=== PATIENT | male | born 1995 | race Caucasian/White ===

== ENCOUNTER 2019-05-06 22:12 | Emergency (ER) | payer MEDICAID ==
[~2019-05-06] VITALS: Ht 180.3 cm; Wt 120.2 kg
[2019-05-06 22:54] VITALS: BP_SYST 147
--- NOTE | 2019-05-06 22:59 | NUR ---
Patient triaged and placed in waiting room. VSS and patient appears in no acute distress at this time. Accompanied by girlfriend, awaiting available bed, and MD notified of need for MSE.
--- NOTE | 2019-05-07 00:45 | NUR ---
Patient to ER bed 04 to gown for evaluation. Side rails up.
--- NOTE | 2019-05-07 00:50 | NUR ---
Patient to ER via triage for evaluation of rectal pain, patient reports HX of hemorrhoids x 1 year. Patient is awake, alert and oriented in no acute distress, vital signs stable, respirations even and unlabored, skin warm and dry to touch. Patient able to ambulate without difficulty with slow, steady gait to bed 4. Awaiting evaluation by ER MD, will continue to observe and assess.
--- NOTE | 2019-05-07 01:11 | NUR ---
ER Dr. Osorio at bedside examining patient.
[2019-05-07] MEDS ORDERED: ACETAMINOPHEN 500 MG TABLET PO ONE (01:15)
[2019-05-07] MEDS ORDERED: IBUPROFEN 800 MG TABLET PO ONE (01:15)
--- NOTE | 2019-05-07 01:50 | NUR ---
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
[2019-05-07 02:40] VITALS: BP_SYST 130
--- NOTE | 2019-05-07 02:40 | NUR ---
Patient given written and verbal discharge instructions and verbalizes understanding. ER MD discussed with patient the results and treatment provided. Patient in stable condition. ID arm band removed. Rx of Anusol, Tylenol with Codeine, Colace given. Patient educated on pain management and to follow up with PMD. Pain Scale 0. Opportunity for questions provided and answered. Medication side effect fact sheet provided. Patient left ER in no acute distress, able to ambulate without difficulty with slow, steady gait with friend at his side. No adverse reaction noted to medication.
== END 2019-05-07 02:40 | disposition home or self-care (01) ==
LOC: SED 22:12
DX: K64.5 Perianal venous thrombosis (principal)
CPT/HCPCS: 99283